=== PATIENT | female | born 1990 | race Caucasian/White ===

== ENCOUNTER 2020-06-14 07:48 | Day surgery (SDC) | payer OTHER ==
[~2020-06-14] VITALS: Ht 175.3 cm; Wt 88.0 kg
[2020-06-14 08:10] VITALS: BP 120/63
[2020-06-14 12:29] VITALS: BP 103/49
== END 2020-06-14 11:45 ==
LOC: GI 07:48 → OR 09:00 → GI 11:45
PROVIDERS: ATTEND Internal Medicine Gastroenterology
DX: K59.09 Other constipation (principal); K64.8 Other hemorrhoids
CPT/HCPCS: 45378; J1200; J1610; J2250; J2310; J3010; J3490